=== PATIENT | female | born 1985 | race Hispanic/Latino ===

== ENCOUNTER 2017-01-25 10:34 | Emergency (ER) | payer SELFPAY ==
[2017-01-25 10:48] VITALS: BP 153/88
--- NOTE | 2017-01-25 12:03 | EDM.PDOC ---
ED HPI GENERAL MEDICAL PROBLEM - General Chief Complaint: Lower Extremity Injury/Pain Stated Complaint: RT FOOT INJURY Time Seen by Provider: 01/25/17 11:29 Source of Information: Reports: Patient History Limitations: Reports: No Limitations - History of Present Illness INITIAL COMMENTS - FREE TEXT/NARRATIVE: Patient is a 31-year-old female who presents to the ED complaining of right foot pain. Patient states this Wednesday she was assisting her father in builiding a deck. States she moved quite a bit of lumbar while wearing slip on sandals. States that evening developed pain to the lateral aspect of the right foot. She wasnt able to weight-bear yesterday. Has been utilizing ice, elevation , and ibuprofen with decrease in swelling noted. She is able to ambulate today with no issues. She did injure the affected foot approx 2 weeks ago while wearing sandals. She had some swelling present as well with difficulty walking. No prior history of surgery to the affected foot. Again swelling has subsided. No numbness or tingling present. No pain to the right ankle noted. Right Feet Pain Score (Numeric/FACES): 6 - Related Data Allergies Allergy/AdvReac Type Severity Reaction Status Date / Time No Known Allergies Allergy Verified 01/25/17 10:48 Home Meds: Home Meds . [No Known Home Meds] 01/25/17 [History] Past Medical History HEENT History: Reports: Other (See Below) Other HEENT History: wisdom teeth extracted Cardiovascular History: Reports: Hypertension Musculoskeletal History: Reports: Other (See Below) Other Musculoskeletal History: bone spurs on the left foot - Past Surgical History HEENT Surgical History: Reports: Oral Surgery Social & Family History - Tobacco Use Smoking Status *Q: Never Smoker Second Hand Smoke Exposure: No - Caffeine Use Caffeine Use: Reports: Coffee, Soda, Tea - Recreational Drug Use Recreational Drug Use: No - Living Situation & Occupation Living situation: Reports: , with Spouse Occupation: Employed Review of Systems - Review of Systems Review Of Systems: See Below Musculoskeletal: Reports: Foot Pain (Right). Denies: Leg Pain, Joint Swelling Skin: Denies: Bruising Neurological: Denies: Numbness, Tingling, Difficulty Walking ED EXAM, GENERAL - Physical Exam Exam: See Below Exam Limited By: No Limitations General Appearance: Alert, WD/WN, No Apparent Distress Ears: Hearing Grossly Normal Nose: Normal Inspection Throat/Mouth: Normal Voice, No Airway Compromise Neck: Normal Inspection, Supple Respiratory/Chest: No Respiratory Distress, No Accessory Muscle Use Cardiovascular: Normal Peripheral Pulses, Regular Rate, Rhythm Peripheral Pulses: 2+: Radial (R), Posterior Tibial (R) Extremities: Other (Pinpoint tenderness along the base of the fourth and fifth metatarsal on the right foot. No swelling present. No decreased range of motion is noted. No sensory deficits. No pain with palpation of the ankle.) Neurological: Alert, Oriented, CN II-XII Intact, Normal Cognition, No Motor/ Sensory Deficits Psychiatric: Normal Affect, Normal Mood Skin Exam: Warm, Dry, Intact, Normal Color Course - Vital Signs Last Recorded V/S: Last Vital Signs Temp 98.1 F 01/25/17 10:39 Pulse 98 01/25/17 10:39 Resp 13 01/25/17 10:39 BP 153/88 H 01/25/17 10:39 Pulse Ox 98 01/25/17 10:39 - Re-Assessments/Exams Free Text/Narrative Re-Assessment/Exam: Ordered x-ray of the right foot. 01/25/17 12:39 X-ray of the right foot did not reveal any acute bony abnormalities. Discharge instructions as documented. Departure - Departure Time of Disposition: 12:41 Disposition: Home, Self-Care 01 Condition: Good Clinical Impression: Right foot sprain Qualifiers: Encounter type: initial encounter Qualified Code(s): S93.601A - Unspecified sprain of right foot, initial encounter - Discharge Information Instructions: Foot Sprain Referrals: Jenny Waters DO [Primary Care Provider] - Forms: ED Department Discharge Additional Instructions: No obvious fracture identified on x-ray of the foot. Findings suggest foot sprain. Treatment is symptomatic care including: Refrain from any activities that cause worsening pain, elevate when able to reduce any swelling or pain, ice to the affected area as needed, Tylenol and ibuprofen in alternating fashion for pain. Follow-up with PCP as needed in the next week to 10 days if symptoms have not drastically improved for re-x-ray of the foot. Return to ED for any new or worsening symptoms.
--- NOTE | 2017-01-25 13:00 | CR ---
Right foot: 4 views of the right foot were obtained. Comparison: Previous right foot exam of 11/04/15. Unfused os navicularis is incidentally noted. Small spur is noted at the attachment of the Achilles tendon to the calcaneus. Soft tissue swelling is noted. No acute fracture, dislocation or other bony abnormality is seen. Impression: 1. Soft tissue swelling. Other incidental findings. 2. No acute bony abnormality is identified on right foot study. Diagnostic code #3
== END 2017-01-25 13:12 | disposition home or self-care (01) ==
LOC: JD.ED 10:34
DX: S93.601A Unspecified sprain of right foot, initial encounter (principal); I10 Essential (primary) hypertension; X58.XXXA Exposure to other specified factors, initial encounter
CPT/HCPCS: 73630-26-RT; 73630-RT; 99283

== ENCOUNTER 2017-07-09 11:37 | Emergency (ER) | payer SELFPAY ==
[2017-07-09 12:08] VITALS: BP 193/109
[2017-07-09] MEDS ORDERED: Ketorolac 60 MG/2 ML SDV IM ONE (12:17)
--- NOTE | 2017-07-09 12:29 | EDM.PDOC ---
ED HPI GENERAL MEDICAL PROBLEM - General Chief Complaint: Lower Extremity Injury/Pain Stated Complaint: RIGHT ANKLE SWELLING Time Seen by Provider: 07/09/17 12:19 Source of Information: Reports: Patient, Old Records History Limitations: Reports: No Limitations - History of Present Illness INITIAL COMMENTS - FREE TEXT/NARRATIVE: 31-year-old female presents for evaluation and treatment of right ankle pain and swelling. Reports that this current episode started on Wednesday. Denies any recent trauma to the foot or ankle. She states that since she has been unable to walk due to the pain. Reports pain to the anterior ankle. States it is also felt warm to touch. No erythema noted. No numbness or tingling. Review of the patient's records show she has been seen in the ER the past few years with similar problems. She has never followed up with family medicine or podiatry. She feels that she has gout. States that she gets episodes like this several times a year. She's never had her uric acid levels checked. No confirmation of gout versus pseudogout. The records show she has had x-rays in the past which has not shown any abnormalities. Location: Reports: Lower Extremity, Right (right ankle) Right Ankle Pain Score (Numeric/FACES): 9 - Related Data Allergies Allergy/AdvReac Type Severity Reaction Status Date / Time No Known Allergies Allergy Verified 07/09/17 11:49 Home Meds: Home Meds Acetaminophen/oxyCODONE [Percocet 325-5 MG] 1 tab PO Q4HR PRN #5 tab 07/09/17 [ Rx] Indomethacin 50 mg PO TID #30 capsule 07/09/17 [Rx] amLODIPine [Norvasc] 2.5 mg PO DAILY 07/09/17 [History] Past Medical History HEENT History: Reports: Other (See Below) Other HEENT History: wisdom teeth extracted Cardiovascular History: Reports: Hypertension Musculoskeletal History: Reports: Other (See Below) Other Musculoskeletal History: bone spurs on the left foot - Past Surgical History HEENT Surgical History: Reports: Oral Surgery Social & Family History - Tobacco Use Smoking Status *Q: Never Smoker Second Hand Smoke Exposure: No - Caffeine Use Caffeine Use: Reports: Coffee - Recreational Drug Use Recreational Drug Use: No - Living Situation & Occupation Living situation: Reports: , with Spouse Occupation: Employed Review of Systems - Review of Systems Review Of Systems: See Below Musculoskeletal: Reports: Joint Pain (right ankle), Joint Swelling (right ankle) Skin: Denies: Erythema Neurological: Reports: Difficulty Walking. Denies: Numbness, Tingling ED EXAM, GENERAL - Physical Exam Exam: See Below Exam Limited By: No Limitations General Appearance: Alert, WD/WN, Moderate Distress, Obese Respiratory/Chest: No Respiratory Distress Cardiovascular: Normal Peripheral Pulses Peripheral Pulses: 2+: Dorsalis Pedis (L), Dorsalis Pedis (R) Extremities: Normal Inspection, Normal Capillary Refill, Joint Swelling (right ankle), Limited Range of Motion (to the right ankle due to pain), Increased Warmth (minor) Neurological: Alert, Oriented, Normal Cognition Psychiatric: Normal Affect, Normal Mood Skin Exam: Warm, Dry, Normal Color. No: Erythema Course - Vital Signs Last Recorded V/S: Last Vital Signs Temp 36.6 C 07/09/17 11:46 Pulse 99 07/09/17 11:46 Resp 17 07/09/17 11:46 BP 193/109 H 07/09/17 11:46 Pulse Ox 99 07/09/17 11:46 - Orders/Labs/Meds Meds: Medications Discontinued Medications Generic Name Dose Route Start Last Admin Trade Name Freq PRN Reason Stop Dose Admin Ketorolac Tromethamine 60 mg 07/09/17 12:17 07/09/17 12:23 Toradol IM 07/09/17 12:18 60 mg ONETIME ONE Administration - Re-Assessments/Exams Free Text/Narrative Re-Assessment/Exam: 07/09/17 12:57 Feels improved after the toradol. Patient likely has gout will have her follow- p with podiatry for confirmation testing and family med for uric acid testing. Plan will be to start indomethacin. Discharge instructions as documented. Departure - Departure Time of Disposition: 12:54 Disposition: Home, Self-Care 01 Condition: Fair Clinical Impression: Ankle pain, right, Ankle swelling - Discharge Information Prescriptions: Acetaminophen/oxyCODONE [Percocet 325-5 MG] 1 tab PO Q4HR PRN #5 tab PRN Reason: Pain Indomethacin 50 mg PO TID #30 capsule Instructions: Ankle Pain Referrals: Richard Schafer II DPM [Physician] - PCP,None [Primary Care Provider] - Allie Pham PA-C [Ordering Only Provider] - Forms: ED Department Discharge Additional Instructions: Recommend follow-up with Dr. Gilmar stern, to confirm diagnosis of gout. you will likely need a joint aspiration to confirm this. Call [phone] to schedule him. Recommend follow-up with family medicine for hypertension and elevated acid levels checked. Recommend allie pham or Lillie Clifford at the [facility]. Call [phone] scheduled one of these providers. Take the indomethacin 1 tab 3 times a day. Taper off once the pain has subsided. Take 1 tablet twice a day and 1 tab once a day. Take this medication with food. Percocet 1 tab every 4-6 hours as needed for severe pain. Do not drive or operate machinery within 12 hours of taking Percocet. Percocet can be habit- forming, I recommend you take as few of these as needed to control your pain. Use crutches as needed. Elevate the foot. Use ice as needed to help reduce swelling. Please return to the ER if your symptoms change or worse ED HPI GENERAL MEDICAL PROBLEM - General Chief Complaint: Lower Extremity Injury/Pain Stated Complaint: RIGHT ANKLE SWELLING Time Seen by Provider: 07/09/17 12:19 Source of Information: Reports: Patient History Limitations: Reports: No Limitations Right Ankle Pain Score (Numeric/FACES): 9 - Related Data Allergies Allergy/AdvReac Type Severity Reaction Status Date / Time No Known Allergies Allergy Verified 07/09/17 11:49 Home Meds: Home Meds Prednisone [IJD: predniSONE] 40 mg PO WITHBREAKFAST #10 tab 07/09/17 [Rx] amLODIPine [Norvasc] 2.5 mg PO DAILY 07/09/17 [History] Past Medical History HEENT History: Reports: Other (See Below) Other HEENT History: wisdom teeth extracted Cardiovascular History: Reports: Hypertension Musculoskeletal History: Reports: Other (See Below) Other Musculoskeletal History: bone spurs on the left foot - Past Surgical History HEENT Surgical History: Reports: Oral Surgery Social & Family History - Tobacco Use Smoking Status *Q: Never Smoker Second Hand Smoke Exposure: No - Caffeine Use Caffeine Use: Reports: Coffee - Recreational Drug Use Recreational Drug Use: No - Living Situation & Occupation Living situation: Reports: , with Spouse Occupation: Employed Course - Vital Signs Last Recorded V/S: Last Vital Signs Temp 36.6 C 07/09/17 11:46 Pulse 99 07/09/17 11:46 Resp 17 07/09/17 11:46 BP 193/109 H 07/09/17 11:46 Pulse Ox 99 07/09/17 11:46 - Orders/Labs/Meds Orders: Active Orders 24 hr Category Date Time Status Ketorolac [Toradol] Med 07/09/17 12:17 Once 60 mg IM ONETIME ONE Medication Orders Ketorolac Tromethamine (Toradol) 60 mg IM ONETIME ONE Stop: 07/09/17 12:18 Meds: Medications Generic Name Dose Route Start Last Admin Trade Name Freemeterio PRN Reason Stop Dose Admin Ketorolac Tromethamine 60 mg 07/09/17 12:17 Toradol IM 07/09/17 12:18 ONETIME ONE Departure - Departure Time of Disposition: 12:54 Disposition: Home, Self-Care 01 Condition: Fair Clinical Impression: Ankle pain, right, Ankle swelling - Discharge Information Prescriptions: Prednisone [IJD: predniSONE] 40 mg PO WITHBREAKFAST #10 tab Referrals: PCP,None [Primary Care Provider] - Richard Schafer II, DPM [Physician] - - My Orders Last 24 Hours: My Active Orders 07/09/17 12:17 Ketorolac [Toradol] 60 mg IM ONETIME ONE - Assessment/Plan Last 24 Hours: My Active Orders 07/09/17 12:17 Ketorolac [Toradol] 60 mg IM ONETIME ONE Recommend follow-up with Dr. Gilmar stern, to confirm diagnosis of gout. He will likely need a joint aspiration to confirm this. Take the prednisone 2 tabs of 40 mg twice a day for 5 days. Use crutches as needed. Elevate the foot. Use ice as needed to help reduce swelling. Please return to the ER if your symptoms change or worsen.
== END 2017-07-09 13:30 | disposition home or self-care (01) ==
LOC: JD.ED 11:37
DX: M25.571 Pain in right ankle and joints of right foot (principal); M25.471 Effusion, right ankle; I10 Essential (primary) hypertension; Z79.899 Other long term (current) drug therapy
CPT/HCPCS: 96372; 99283; J1885

== ENCOUNTER 2023-11-14 23:51 | Emergency (ER) | payer SELFPAY ==
[2023-11-15] MEDS: Sodium Chloride 0.9% 10 ML Syringe FLUSH PRN (00:03)
[2023-11-15 00:30] LABS: BASOPHILS PERCENT AUTO 0.5 % (0.0-1.0); EOSINOPHILS ABSOLUTE AUTO 0.3 K/mm3 (0.0-0.4); EOSINOPHILS PERCENT AUTO 3.1 % (0.0-6.0); HEMATOCRIT 42.1 % (37.0-47.0); HEMOGLOBIN 13.3 gm/dl (12.0-16.0); IMMATURE GRAN ABSOLUTE AUTO 0.01 K/mm3 (0.00-0.05); IMMATURE GRAN PERCENT AUTO 0.1 % (0.0-0.4); LYMPHOCYTES ABSOLUTE AUTO 1.5 K/mm3 (1.0-4.8); LYMPHOCYTES PERCENT AUTO 17.4 % (24.0-44.0); MEAN CORPUSCULAR HEMOGLOBIN 26.1 pg (28.0-32.0); MEAN CORPUSCULAR HGB CONC 31.6 g/dl (32.0-36.0); MEAN CORPUSCULAR VOLUME 82.7 fl (83.0-99.0); MEAN PLATELET VOLUME 8.9 fl (9.4-12.3); MONOCYTES ABSOLUTE AUTO 0.6 K/mm3 (0.0-0.8); MONOCYTES PERCENT AUTO 6.8 % (0.0-8.0); NEUTROPHILS ABSOLUTE AUTO 6.3 K/mm3 (1.8-7.7); NEUTROPHILS PERCENT AUTO 72.1 % (41.0-71.0); PLATELET COUNT,PLT 307 K/mm3 (150-400); RED BLOOD CELL COUNT 5.09 M/mm3 (4.10-5.30); WHITE BLOOD CELL COUNT,WBC 8.76 K/mm3 (3.9-11.3)
[2023-11-15 00:55] LABS: CORONAVIRUS COVID-19 NAA NEGATIVE (NEGATIVE); INFLUENZA A NAA NEGATIVE (NEGATIVE); RESPIRATORY SYNCYTIAL VIR NAA NEGATIVE (NEGATIVE)
[2023-11-15 00:59] LABS: A/G RATIO 0.9 (1-2); ALBUMIN 3.3 g/dl (3.4-5.0); ANION GAP 13.5 (5-15); BILIRUBIN TOTAL 1.1 mg/dL (0.2-1.0); BUN/CREATININE RATIO 13.6 (14-18); CALCIUM 8.6 mg/dL (8.5-10.1); CREATININE 1.4 mg/dL (0.55-1.02); EST CRCL DRUG DOSING (CG) 56.04 mL/min; MAGNESIUM 1.8 mg/dL (1.8-2.4); POTASSIUM,K 3.5 mEq/L (3.5-5.1); PROTEIN TOTAL,TP 7.2 g/dl (6.4-8.2)
[2023-11-15 03:16] LABS: APPEARANCE,URINE CLEAR (Clear); BILIRUBIN,URINE NEGATIVE (Negative); COLOR,URINE YELLOW (Yellow); GLUCOSE,URINE NEGATIVE (Negative); KETONES,URINE NEGATIVE (Negative); LEUKOCYTE ESTERASE,URINE NEGATIVE (Negative); NITRITE,URINE NEGATIVE (Negative); OCCULT BLOOD,URINE TRACE-INTACT (Negative); PH,URINE 6.5 (5.0-8.0); PROTEIN,URINE 3+ (Negative)
[2023-11-15 03:32] LABS: RBC,URINE 0-5 /hpf (0-5); SQUAMOUS EPITHELIAL CELLS,UR 0-5 /hpf (0-5); WBC,URINE 0-5 /hpf (0-5)
[2023-11-15 03:33] LABS: BACTERIA,URINE FEW /hpf (FEW); MUCUS,URINE RARE /hpf (FEW)
[2023-11-15] MEDS: Sodium Chloride 0.9% 100 ML IV SCH (03:33)
[2023-11-15] MEDS: Sodium Chloride 0.9% 10 ML Syringe FLUSH ONE (03:33)
[2023-11-15] MEDS: Iopamidol 755 Mg/ML 100 ML Bottle IVPUSH ONE (03:33)
[2023-11-15 04:40] VITALS: BP 170/101; PULSE 91
== END 2023-11-15 04:45 | disposition home or self-care (01) ==
LOC: JD.ED 23:51
DX: R06.02 Shortness of breath (principal); E66.9 Obesity, unspecified; Z68.42 Body mass index [BMI] 45.0-49.9, adult; R79.89 Other specified abnormal findings of blood chemistry; E11.9 Type 2 diabetes mellitus without complications; Z86.16 Personal history of COVID-19; Z79.899 Other long term (current) drug therapy
CPT/HCPCS: 0241U; 36415; 71046; 71275; 80053; 81001; 83735; 83880; 84484; 85025; 85379; 93005; 99285; J3490; Q9967; 93010; 99284

== ENCOUNTER 2024-11-10 01:08 | Emergency (ER) | payer OTHER ==
[2024-11-10] MEDS ORDERED: cefTRIAXone 1 GM, Lidocaine 1% 2.1 ML IM ONE (01:50)
[2024-11-10] MEDS ORDERED: Naloxone 0.4 MG/ML SDV IVPUSH PRN (02:58)
[2024-11-10] MEDS: Labetalol 100 MG/20 ML MDV IVPUSH ONE ×2 (03:05→05:44)
[2024-11-10 03:10] LABS: BASOPHILS ABSOLUTE AUTO 0.0 K/mm3 (0.0-0.2); BASOPHILS PERCENT AUTO 0.4 % (0.0-1.0); EOSINOPHILS ABSOLUTE AUTO 0.3 K/mm3 (0.0-0.4); EOSINOPHILS PERCENT AUTO 2.5 % (0.0-6.0); IMMATURE GRAN ABSOLUTE AUTO 0.03 K/mm3 (0.00-0.05); IMMATURE GRAN PERCENT AUTO 0.3 % (0.0-0.4); LYMPHOCYTES ABSOLUTE AUTO 2.0 K/mm3 (1.0-4.8); LYMPHOCYTES PERCENT AUTO 19.3 % (24.0-44.0); MEAN PLATELET VOLUME 9.0 fl (9.4-12.3); MONOCYTES ABSOLUTE AUTO 0.8 K/mm3 (0.0-0.8); MONOCYTES PERCENT AUTO 7.4 % (0.0-8.0); NEUTROPHILS ABSOLUTE AUTO 7.1 K/mm3 (1.8-7.7); NEUTROPHILS PERCENT AUTO 70.1 % (41.0-71.0); NRBC ABSOLUTE 0.00 (0.00-0.02); NRBC PERCENT 0.0 % (0.0-0.2); PLATELET COUNT,PLT 263 K/mm3 (150-400); RED BLOOD CELL COUNT 4.60 M/mm3 (4.10-5.30); WHITE BLOOD CELL COUNT,WBC 10.11 K/mm3 (3.9-11.3)
[2024-11-10 03:44] LABS: A/G RATIO 0.8 (1-2); ALANINE AMINOTRANSFERASE,ALT 29.0 U/L (14-59); ASPARTATE AMNIOTRANSFERASE,AST 22.0 U/L (15-37); BILIRUBIN TOTAL 0.4 mg/dL (0.2-1.0); BLOOD UREA NITROGEN,BUN 16.0 mg/dL (7-18); CARBON DIOXIDE,CO2 28.0 mEq/L (21-32); CHLORIDE,CL 103.0 mEq/L (98-107); CREATININE 1.3 mg/dL (0.55-1.02); EST CRCL DRUG DOSING (CG) 57.62 mL/min; ESTIMATED GFR 54.0 mL/min (>60); GLUCOSE RANDOM 125.0 mg/dL (70-99); POTASSIUM,K 3.5 mEq/L (3.5-5.1); PROTEIN TOTAL,TP 7.7 g/dl (6.4-8.2); SODIUM,NA 140.0 mEq/L (136-145); TROPONIN I HIGH SENSITIVITY 18.0 pg/mL (<=51); TSH 2.67 uIU/mL (0.358-3.74)
[2024-11-10] MEDS: Diphtheria,Pertussis(Acell),Tetanus Vaccine 0.5 ML Syringe IM ONE (03:48)
[2024-11-10] MEDS: Furosemide 40 MG/4 ML VIAL IVPUSH ONE (05:44)
[2024-11-10] MEDS: Potassium Bicarbonate/Cit Ac 20 MEQ Effervescent Tab PO ONE (05:48)
[2024-11-10 06:37] VITALS: BP 145/98; PULSE 78
== END 2024-11-10 06:36 | disposition home or self-care (01) ==
LOC: JD.ED 01:08
DX: S81.852A Open bite, left lower leg, initial encounter (principal); S81.812A Laceration without foreign body, left lower leg, initial encounter; I10 Essential (primary) hypertension; E11.9 Type 2 diabetes mellitus without complications; F17.200 Nicotine dependence, unspecified, uncomplicated; Z86.16 Personal history of COVID-19; Z79.899 Other long term (current) drug therapy; W54.0XXA Bitten by dog, initial encounter; Z23 Encounter for immunization
CPT/HCPCS: 12001; 36415; 80053; 83735; 84443; 84484; 85025; 90471; 90715; 93005; 96374; 96375; 96376; 99283; A9270; J0696; J1920; J1938; J2003; 93010; J1171